=== PATIENT | female | born 1975 | race Caucasian/White ===

== ENCOUNTER 2018-05-13 12:56 | Outpatient (CLI) | payer OTHER | END 2018-05-13 23:59 | disposition home or self-care (01) | LOC: CFH 12:56 | PROVIDERS: ATTEND Obstetrics & Gynecology | DX: N64.4 Mastodynia (principal) | CPT/HCPCS: 76641; 77066; G0279 ==

== ENCOUNTER 2018-11-22 16:52 | Emergency (ER) | payer OTHER ==
[~2018-11-22] VITALS: Ht 154.9 cm; Wt 76.2 kg
[2018-11-22 16:53] VITALS: BP 155/75
[2018-11-22] MEDS ORDERED: FLUORESCEIN/BENOXINATE 5 ML DROPS OP ONE (17:30)
[2018-11-22] MEDS ORDERED: PROPARACAINE OPHTH 0.5%, 15ML EACHEYE ONE (17:30)
[2018-11-22] MEDS ORDERED: PROPARACAINE OPHTH 0.5%, 15ML ONE ×2 (19:32→19:34)
[2018-11-22] MEDS ORDERED: FLUORESCEIN OPHTHALMIC 1 MG STRIP ONE (19:32)
--- NOTE | 2018-11-22 19:41 | NUR ---
Pt in room 20, c/o left eye pain/ itching and scab, states "it might be shingles". Medications and equipment at bedside.
--- NOTE | 2018-11-22 20:36 | NUR ---
Pt stable for discharge to home, exitcare reviewed, pt verbalizes understanding, ambulates w/ steady gait to discharge desk.
== END 2018-11-22 20:37 | disposition home or self-care (01) ==
LOC: ED 19:12
DX: H10.232 Serous conjunctivitis, except viral, left eye (principal); S00.212A Abrasion of left eyelid and periocular area, initial encounter; X58.XXXA Exposure to other specified factors, initial encounter; Y93.89 Activity, other specified; Y92.89 Other specified places as the place of occurrence of the external cause; Y99.8 Other external cause status
CPT/HCPCS: 99282

== ENCOUNTER 2019-06-28 14:47 | Outpatient (CLI) | payer OTHER | END 2019-06-28 23:59 | disposition home or self-care (01) | LOC: CFH 14:47 | PROVIDERS: ATTEND Obstetrics & Gynecology | DX: Z12.31 Encounter for screening mammogram for malignant neoplasm of breast (principal); N64.89 Other specified disorders of breast | CPT/HCPCS: 77063; 77067 ==

== ENCOUNTER 2020-10-03 16:18 | Outpatient (CLI) | payer OTHER | END 2020-10-03 23:59 | disposition home or self-care (01) | LOC: CFH 16:18 | PROVIDERS: ATTEND Obstetrics & Gynecology | DX: Z12.31 Encounter for screening mammogram for malignant neoplasm of breast (principal); N63.12 Unspecified lump in the right breast, upper inner quadrant | CPT/HCPCS: 77063; 77067 ==

== ENCOUNTER → 2020-10-25 | Outpatient (CLI) | payer OTHER | END | disposition home or self-care (01) | LOC: CFH 14:31 | PROVIDERS: ATTEND Obstetrics & Gynecology | DX: N63.12 Unspecified lump in the right breast, upper inner quadrant (principal) | CPT/HCPCS: 76642; 77065 ==

== ENCOUNTER → 2020-11-11 | Outpatient (CLI) | payer OTHER ==
[~2020-11-11] MED LIST: LIDOCAINE 1%, 20ML ONE; LIDOCAINE 1%-EPI 1:100K, 20ML ONE; SODIUM BICARBONATE 4.0%, 5ML ONE
== END | disposition home or self-care (01) ==
LOC: CFH 07:43
PROVIDERS: ATTEND Obstetrics & Gynecology
DX: N63.12 Unspecified lump in the right breast, upper inner quadrant (principal); D24.1 Benign neoplasm of right breast
CPT/HCPCS: 19083; 19084; 77065; 88305; J3490